=== PATIENT | female | born 1950 | race Caucasian/White ===

== ENCOUNTER → 2017-02-20 | Outpatient (CLI) | payer MEDICARE ==
[~2017-02-20] MED LIST: CELE100C PO; CYCL10TA2 PO; GABA-586 PO; MODA200T31 PO; NAPR500T3 PO; PANT40GR PO; PRED10TA16 PO; PRED2.5T PO; RISE35TA3 PO; SULF500T7 PO; TRAM50TA PO
--- NOTE | 2017-02-20 11:28 | RAD ---
Left lower extremity venous ultrasound, 02/20/2017 : History: Left leg swelling Duplex evaluation including grayscale, color flow and spectral Doppler analysis was performed. The femoral and popliteal veins show no filling defects to suggest DVT. The visualized calf veins are unremarkable. IMPRESSION: There is no sonographic evidence of deep vein thrombosis in the left lower extremity
== END | disposition home or self-care (01) ==
LOC: US 10:47
PROVIDERS: ATTEND Internal Medicine
DX: M79.89 Other specified soft tissue disorders (principal)
CPT/HCPCS: 93971

== ENCOUNTER → 2017-03-28 | Outpatient (CLI) | payer MEDICARE ==
[~2017-03-28] MED LIST changes: +GADOBUTROL 7.5 MMOL/7.5 ML VIAL IV ONE; -NAPR500T3 PO; +NAPR500T4 PO
--- NOTE | 2017-03-28 14:43 | KCIC ---
MRI of the Brain without and with Contrast 03/28/2017 Clinical History: History of meningioma post CyberKnife in 2012. Technique: Unenhanced T1-weighted sagittal and axial and FLAIR, T2-weighted, gradient echo and diffusion-weighted axial images of the brain were obtained. After the intravenous administration of 7 cc of Gadavist, enhanced T1-weighted axial, sagittal and coronal images of the brain were obtained. Findings: Comparison study is dated 03/14/2016. The patient is post right frontal craniotomy. There is generalized parenchymal atrophy. Patchy and a few small scattered areas of increased signal intensity are seen within the periventricular and subcortical white matter of both cerebral hemispheres on the FLAIR and T2-weighted images consistent with areas of minimal small vessel ischemic disease. These have not significantly changed. An enhancing extra-axial mass is seen near the right anterior aspect of the foramen magnum consistent with the patient's history of meningioma. It measures 1.2 cm in greatest diameter. It is unchanged from the previous examination. No acute parenchymal abnormality is seen. No extra-axial fluid collection is noted. There is no MRI evidence of acute ischemia/infarction. Mild mucosal thickening is seen involving scattered ethmoid air cells bilaterally. There are small bilateral mastoid effusions, left greater than right. Normal flow voids are seen within the major vascular structures surrounding the brain parenchyma. IMPRESSION: Stable MRI appearance of the 1.2 cm meningioma near the region of the right anterior foramen magnum. No acute parenchymal abnormality is seen. Electronically signed by: Nghia Torre MD (03/28/2017 2:40 PM) [id number]
== END | disposition home or self-care (01) ==
LOC: KCIC MRI 10:07
PROVIDERS: ATTEND Neurological Surgery
DX: Z86.011 Personal history of benign neoplasm of the brain (principal)
CPT/HCPCS: 70553; 82565; A9585

== ENCOUNTER → 2017-11-20 | Day surgery (SDC) | payer MEDICARE ==
[~2017-11-20] MED LIST changes: -CELE100C PO; -CYCL10TA2 PO; -GABA-586 PO; -GADOBUTROL 7.5 MMOL/7.5 ML VIAL IV ONE; +LIDOCAINE 1%/EPI 1:100,000 20 ML VIAL. INJ; -MODA200T31 PO; -NAPR500T4 PO; -PANT40GR PO; -PRED10TA16 PO; -PRED2.5T PO; -RISE35TA3 PO; -SULF500T7 PO; -TRAM50TA PO
[2017-11-20] MEDS: LIDOCAINE 1%/EPI 1:100,000 20 ML VIAL. INJ (12:50)
== END | disposition home or self-care (01) ==
LOC: SURG 11:51
DX: D17.22 Benign lipomatous neoplasm of skin and subcutaneous tissue of left arm (principal); Z88.0 Allergy status to penicillin; Z88.2 Allergy status to sulfonamides; Z88.1 Allergy status to other antibiotic agents; G47.30 Sleep apnea, unspecified; M19.90 Unspecified osteoarthritis, unspecified site; F17.210 Nicotine dependence, cigarettes, uncomplicated
CPT/HCPCS: 25071; 88304; J3490

== ENCOUNTER 2018-07-10 06:41 | Emergency (ER) | payer MEDICARE ==
[~2018-07-10] VITALS: Ht 157.5 cm; Wt 57.2 kg
[~2018-07-10 06:41] MED LIST changes: +CELE100C PO; +CYCL10TA2 PO; +GABA300C18 PO; -LIDOCAINE 1%/EPI 1:100,000 20 ML VIAL. INJ; +MODA200T31 PO; +NAPR-514 PO; +PANT40GR PO; +PRED10TA16 PO; +PRED2.5T PO; +RISE35TA3 PO; +SULF500T7 PO; +TRAM50TA PO
[2018-07-10] MEDS ORDERED: ONDANSETRON PF 4 MG/2 ML VIAL. IV ONE (07:00)
[2018-07-10] MEDS ORDERED: fentaNYL PF VIAL 100 MCG/2 ML VIAL IV ONE ×2 (07:00→07:45)
--- NOTE | 2018-07-10 08:03 | RAD ---
Two-view right humerus 07/10/2018 CLINICAL INDICATION: Fall with right arm pain. COMPARISON: None. FINDINGS: No acute fracture or traumatic malalignment of the humeral diaphysis. The visualized soft tissues are unremarkable. Mild right acromioclavicular osteoarthritis with joint space narrowing and subchondral cystic change. IMPRESSION: No acute osseous abnormality. Electronically signed by: Patricio Steiner MD (07/10/2018 7:58 AM) [facility]
--- NOTE | 2018-07-10 08:04 | RAD ---
3 view right elbow 07/10/2018 CLINICAL INDICATION: Right arm pain after fall. COMPARISON: None. FINDINGS: No acute fracture or traumatic malalignment. Joint spaces are maintained. No significant elbow joint effusion. Normal bony alignment. IMPRESSION: No acute osseous abnormality. Electronically signed by: Patricio Steiner MD (07/10/2018 7:59 AM) [facility]
--- NOTE | 2018-07-10 08:06 | RAD ---
3 view right wrist 07/10/2018 CLINICAL INDICATION: Right wrist pain after fall. COMPARISON: None. FINDINGS: Transverse impacted and comminuted fracture of the distal radial metaphysis with intra-articular extension and mild dorsal angulation of the dominant distal fracture fragment. There is extension to the DRUJ. There is a nondisplaced ulnar styloid fracture. Normal carpal alignment. Mild 1st CMC osteoarthritis. Soft tissue swelling about the wrist. IMPRESSION: 1. Comminuted and angulated intra-articular fracture of the distal radius. 2. Nondisplaced ulnar styloid fracture. Electronically signed by: Patricio Steiner MD (07/10/2018 8:02 AM) [facility]
--- NOTE | 2018-07-10 08:07 | RAD ---
Two-view right forearm 07/10/2018 CLINICAL INDICATION: Right arm pain after fall. COMPARISON: Same day right wrist FINDINGS: Redemonstration of intra-articular fracture of the distal radius and nondisplaced ulnar styloid fracture. Otherwise, no evidence of acute fracture. IMPRESSION: Redemonstration of fractures of the distal radius and ulna. Electronically signed by: Patricio Steiner MD (07/10/2018 8:02 AM) [facility]
[2018-07-10 08:09] VITALS: BP 134/60
[2018-07-10] MEDS ORDERED: HYDR-2759 PO (08:09)
[2018-07-10] MEDS ORDERED: ALBUTEROL SULFATE 2.5 MG/3 ML NEBU. CONT NEB ONE (08:15)
--- NOTE | 2018-07-10 08:16 | PHYS DOC ---
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 Injury occurred just prior to ED arrival while walking her dogs. No head injury. No loss of consciousness. Patient localizes pain to right wrist, elbow and forearm. Pain with range of motion of wrist and forearm with subtle deformity of wrist. Abrasion of right knee. No other acute injuries or complaints.[] Review of Systems Review of Systems Review symptoms as per history of present illness. All other review symptoms are negative. All other systems were reviewed and found to be within normal limits, except as documented in this note. Current Medications Current Medications Current Medications Medications (Trade) Dose Ordered Sig/Mona Start Time Stop Time Status Last Admin Dose Admin Albuterol Sulfate (Ventolin Neb Soln) 10 mg 1X ONCE 07/10/18 08:15 07/10/18 08:16 Fentanyl Citrate (Fentanyl 2ml Vial) 50 mcg 1X ONCE 07/10/18 07:45 07/10/18 07:46 DC 07/10/18 07:51 50 MCG Ondansetron HCl (Zofran) 4 mg 1X ONCE 07/10/18 07:00 07/10/18 07:01 DC 07/10/18 07:27 4 MG Allergies Allergies Allergies Coded Allergies Type Severity Reaction Last Updated Verified Penicillins Allergy Intermediate 11/20/17 Yes Sulfa (Sulfonamide Antibiotics) Allergy Intermediate 11/20/17 Yes amoxicillin Allergy Intermediate 11/20/17 Yes Physical Exam Physical Exam Constitutional: Well developed, well nourished, no acute distress, non-toxic appearance. [] HENT: Normocephalic, atraumatic, bilateral external ears normal, oropharynx moist, no oral exudates, nose normal. [] Eyes: PERRLA, EOMI, conjunctiva normal, no discharge. [] Neck: Normal range of motion, no tenderness. [] ] Extremities: R Upper extremity, shoulder/humerus/elbow, no deformity, tenderness swelling or bruising, right wrist, subtle deformity swelling of distal wrist. Right knee, abrasion, no bony tenderness. Range of motion intact. [] Neurologic: Alert and oriented X 3, right upper extremity, neurovascularly intact. [] Psychologic: Affect normal, judgement normal, mood normal. [] Current Patient Data Vital Signs Vital Signs Date Time Temp Pulse Resp B/P (MAP) Pulse Ox O2 Delivery O2 Flow Rate FiO2 07/10/18 07:51 14 07/10/18 07:27 Room Air 07/10/18 06:41 98.0 61 154/67 (96) 98 98.0 EKG EKG [] Radiology/Procedures Radiology/Procedures [Right humerus/right elbow/right forearm/right wrist x-rays: Comminuted and angulated intra-articular fracture of the distal radius nondisplaced styloid fracture per radiology report.] Course & Med Decision Making Course & Med Decision Making Pertinent Labs and Imaging studies reviewed. (See chart for details) [Neurovascularly intact on recheck after splint placed. Orthopedic referral provided..] Dragon Disclaimer Dragon Disclaimer This electronic medical record was generated, in whole or in part, using a voice recognition dictation system. Departure Departure Impression: Primary Impression: Wrist fracture, right Additional Impression: Contusion of knee, right Disposition: 01 HOME, SELF-CARE Condition: GOOD Referrals: ALYSON DASH MD Patient Instructions: Wrist Fracture, [id number] Additional Instructions: Please sling, take ibuprofen for pain and hydrocodone as needed for additional relief. Contact Dr. Dash on-call for orthopedic surgery and schedule follow-up appointment within the next week. Scripts Hydrocodone/Acetaminophen (Hydrocodone-Acetamin 5-325 mg) 1 Each Tablet 1 EACH PO Q6HRS, #15 TAB Prov: AJITH DELATORRE DO 07/10/18 Problem Qualifiers AJITH DELATORRE DO Jul 10, 2018 08:16
[2018-07-16] MEDS ORDERED: CHOL10003 PO (10:55)
[2018-07-16] MEDS ORDERED: TIZA4TAB2 PO (10:55)
[2018-07-16] MEDS ORDERED: PROM25TA10 PO (10:56)
[2018-07-16] MEDS ORDERED: HYDR-3165 PO (13:58)
[2019-01-08] MEDS ORDERED: ALEN35TA6 PO (15:43)
[2019-01-14] MEDS ORDERED: OXYC1TAB15 PO (13:09)
== END 2018-07-10 08:25 | disposition home or self-care (01) ==
LOC: ER 06:41
DX: S52.591A Other fractures of lower end of right radius, initial encounter for closed fracture (principal); S52.614A Nondisplaced fracture of right ulna styloid process, initial encounter for closed fracture; S80.01XA Contusion of right knee, initial encounter; M19.90 Unspecified osteoarthritis, unspecified site; Z88.0 Allergy status to penicillin; Z88.2 Allergy status to sulfonamides; Z88.1 Allergy status to other antibiotic agents; W18.30XA Fall on same level, unspecified, initial encounter; Y93.01 Activity, walking, marching and hiking; Y92.89 Other specified places as the place of occurrence of the external cause; Y99.8 Other external cause status
CPT/HCPCS: 29125; 73060; 73070; 73090; 73110; 96374; 96375; 99284; J2405; J3010; 99283-25

== ENCOUNTER → 2018-07-16 | Day surgery (SDC) | payer MEDICARE ==
[~2018-07-16] VITALS: Ht 157.5 cm; Wt 56.2 kg
[~2018-07-16] MED LIST changes: +ALEN35TA6 PO; +BUPIVACAINE MPF 0.5% 30 ML VIAL. ONE; +CHOL10003 PO; +CLINDAMYCIN 900MG PREMIX 50 ML IV ONE; +DEXAMETHASONE SOD PHOS 20 MG/5 ML VIAL. ONE; +GLYCOPYRROLATE 1 MG/5 ML VIAL. ONE; +HYDR-2759 PO; +HYDR-3165 PO; +HYDROcodone/APAP 7.5/325MG 1 TAB TABLET PO ONE; +HYDROmorphone 2 MG/ML VIAL IV PRN; +IV RINGERS,LACTATED 1000ML 1,000 ML IV SCH; +LIDOCAINE 1% PF 2 ML VIAL. ID PRN; +LIDOCAINE 2% PF 5 ML VIAL. ONE; +ONDANSETRON PF 4 MG/2 ML VIAL. IV PRN; +ONDANSETRON PF 4 MG/2 ML VIAL. ONE; +OXYC1TAB15 PO; +PROM25TA10 PO; +PROPOFOL 20 ML IV ONE; +TIZA4TAB2 PO; +fentaNYL PF VIAL 100 MCG/2 ML VIAL IV PRN; +fentaNYL PF VIAL 100 MCG/2 ML VIAL ONE
[2018-07-16 10:56] LABS: BASO % 1 % (0-3); EOS # 0.3 x10^3/uL (0.0-0.7); EOS % 12 % (0-3); HEMATOCRIT 34.8 % (36.0-47.0); HEMOGLOBIN 11.5 g/dL (12.0-15.5); LYMPH # 0.9 x10^3/uL (1.0-4.8); LYMPH % 29 % (24-48); MEAN CORPUSCULAR HEMOGLOBIN 33 pg (25-35); MEAN CORPUSCULAR HGB CONC 33 g/dL (31-37); MEAN CORPUSCULAR VOLUME 101 fL (79-100); MONO # 0.2 x10^3/uL (0.0-1.1); MONO % 6 % (0-9); NEUT # 1.6 x10^3uL (1.8-7.7); NEUT % 52 % (31-73); PLATELET COUNT 183 x10^3/uL (140-400); RED BLOOD COUNT 3.45 x10^6/uL (3.50-5.40); RED CELL DISTRIBUTION WIDTH 13.2 % (11.5-14.5)
--- NOTE | 2018-07-16 11:03 | EKG ---
[facility] [address] [place] [address] Test Date: 2018-07-16 Test Time: 11:00:44 Pat Name: SILAS GALAVIZ Department: Room: Gender: F Analyst Sales: GRECIA : 1950 Requested By: KOKO BENOIT Order Number: [id number] Reading MD: Orlando Proctor MD Measurements Intervals Kingsley Rate: 50 P: 50 OR: 170 QRS: -32 QRSD: 90 T: 46 QT: 460 QTc: 418 Interpretive Statements SINUS RHYTHM ABNORMAL LEFT AXIS DEVIATION NON-SPECIFIC ST/T CHANGES Electronically Signed On 07-16-2018 12:52:27 [employer] by Orlando Proctor MD
[2018-07-16 11:06] LABS: CALCIUM 9.3 mg/dL (8.5-10.1); CREATININE 0.7 mg/dL (0.6-1.0); POTASSIUM 4.4 mmol/L (3.5-5.1)
[2018-07-16] MEDS: fentaNYL PF VIAL 100 MCG/2 ML VIAL IV PRN ×2 (13:55→14:06)
--- NOTE | 2018-07-16 13:56 | DISCH ---
DISCHARGE INSTRUCTIONS Condition on Discharge Condition on Discharge: Stable Activity After Discharge Activity Instructions for Disc: Other, see below (gentle grasping and extending fingers as well as fine motor use permitted to the right hand no heart grasping or lifting) Diet after Discharge Diet after Discharge: Regular Wound Incision Care Wound/Incision Care: Ice to area for comfort, Keep wound elevated, Do not change dressing (keep dressing clean and dry until follow-up may cover in shower ) Contacting the DR. after DC Call your doctor for: Concerns you may have Follow-Up Follow up with: Cali 7-10 days KOKO BENOIT MD Jul 16, 2018 13:56
[2018-07-16] MEDS: PROCHLORPERAZINE 10 MG/2 ML VIAL. IV PRN ×2 (13:59→14:10)
[2018-07-16] MEDS: MORPHINE SULFATE 4 MG/ML VIAL. IV PRN ×2 (14:00→14:26)
--- NOTE | 2018-07-16 14:04 | PDOC4 ---
Operative Note Operative Note Date of surgery: 07/16/2018 Preoperative diagnosis: Displaced intra-articular right distal radius fracture Postoperative diagnosis: Same Operative procedure: Operative reduction internal fixation 2 part intra- articular right distal radius fracture Surgeon: Cali Anesthesia: GenMarcella Tourniquet time of proximally 40 minutes Estimated blood loss: 10 mL Complications: None Operative indications: Please see my preoperative history and physical for detailed operative indications and note that I had gone over the rationale for operative treatment with the patient including the downside of nonoperative treatment in terms of poor alignment at the fracture and joint space. We had talked about operative treatment to minimize any displacement at the joint space and restore the anatomy as well as possible to allow it to heal and minimize deformity and stiffness. All her questions were answered including informing her the possibility of infection nonhealing nerve or blood vessel damage medical or other anesthetic consultations and stiffness and some discomfort even under the best of circumstances with good healing. He wishes to proceed with operative evaluation and treatment Operative text: Patient was identified procedure verified patient placed in the supine position on the operating table. After adequate amounts of general anesthesia were administered the right upper extremity was prepped and draped in standard sterile fashion with a upper arm tourniquet. After timeout was performed patient procedure identified and verified the right upper extremity was exsanguinated by Esmarch bandage tourniquet inflated to 250 mmHg and a volar Kasi approach was carried out to the right distal radius subperiosteal dissection was carried out reduction was carried out open under fluoroscopic guidance and a standard size long length Swathi distal radial locking plate was selected and properly placed a initial screw was placed in the nonlocking hole to position the plate and distal locking holes were placed under fluoroscopic guidance for each ensuring proper placement and fracture reduction as well as hardware length and placement extra-articular. Locking screws were then placed in the proximal row and excellent fixation was noted along with near anatomic reduction both at the joint space and restoring nearly anatomic volar tilt. Nonlocking shaft screws were then placed into additional holes excellent fixation and hardware placement was noted throughout multiple fluoroscopic views. Thorough irrigation carried out normal saline solution closure accomplished with buried Vicryl suture subcuticular Monocryl Steri-Strips and Mastisol followed by a well-padded volar Ortho-Glass splint. Fingers were noted be warm and pink following deflation of tourniquet after a total tourniquet time approximately 40 minutes patient was returned to recovery room in stable condition having tolerated procedure well KOKO BENOIT MD Jul 16, 2018 14:04
[2018-07-16 15:30] VITALS: BP 116/53
== END | disposition home or self-care (01) ==
LOC: SURG 10:01
PROVIDERS: ATTEND Orthopaedic Surgery
DX: S52.571A Other intraarticular fracture of lower end of right radius, initial encounter for closed fracture (principal); Z88.2 Allergy status to sulfonamides; Z88.5 Allergy status to narcotic agent; Z88.1 Allergy status to other antibiotic agents; G47.30 Sleep apnea, unspecified; I65.8 Occlusion and stenosis of other precerebral arteries; M13.80 Other specified arthritis, unspecified site; Z90.49 Acquired absence of other specified parts of digestive tract; Z98.890 Other specified postprocedural states; Z79.899 Other long term (current) drug therapy; W18.39XA Other fall on same level, initial encounter; Y93.89 Activity, other specified; Y92.89 Other specified places as the place of occurrence of the external cause; Y99.8 Other external cause status
CPT/HCPCS: 25608; 36415; 76000; 80048; 85025; 93005; A7015; C1713; J0780; J1100; J2001; J2270; J2405; J2704; J3010; J3490

== ENCOUNTER → 2018-10-18 | Outpatient (CLI) | payer MEDICARE ==
[2018-07-16 15:30] VITALS: BP 116/53
[~2018-10-18] MED LIST changes: -ALEN35TA6 PO; -BUPIVACAINE MPF 0.5% 30 ML VIAL. ONE; -CLINDAMYCIN 900MG PREMIX 50 ML IV ONE; -DEXAMETHASONE SOD PHOS 20 MG/5 ML VIAL. ONE; -GLYCOPYRROLATE 1 MG/5 ML VIAL. ONE; -HYDROcodone/APAP 7.5/325MG 1 TAB TABLET PO ONE; -HYDROmorphone 2 MG/ML VIAL IV PRN; -IV RINGERS,LACTATED 1000ML 1,000 ML IV SCH; -LIDOCAINE 1% PF 2 ML VIAL. ID PRN; -LIDOCAINE 2% PF 5 ML VIAL. ONE; -ONDANSETRON PF 4 MG/2 ML VIAL. IV PRN; -ONDANSETRON PF 4 MG/2 ML VIAL. ONE; -OXYC1TAB15 PO; -PROPOFOL 20 ML IV ONE; +TIZA4TAB PO; -TIZA4TAB2 PO; -fentaNYL PF VIAL 100 MCG/2 ML VIAL IV PRN; -fentaNYL PF VIAL 100 MCG/2 ML VIAL ONE
--- NOTE | 2018-10-18 14:57 | RAD ---
Thyroid ultrasound, 10/18/2018: HISTORY: Left thyroid nodule The right lobe of the gland measures 5.7 x 2.3 x 1.4 cm while the left lobe of the gland measures 5.3 x 2.2 x 2.0 cm. The thyroid echo pattern is heterogeneous. There is a 3 x 5 x 7 mm smooth hypoechoic nodule in the upper pole the right lobe of the gland. No internal calcifications or highly suspicious features are seen. There is a 6 mm nodule with rim-like calcification in the isthmus. There is a nodule in the lower pole the left lobe of the gland which is predominantly isoechoic and difficult to clearly define. It is solid and measures approximate 2.5 x 1.8 x 1.7 cm. It is wider than tall. No internal calcifications are seen. IMPRESSION: Multinodular thyroid gland with a dominant isoechoic nodule in the left lobe as described above. Ultrasound-guided biopsy of the dominant left thyroid nodule may be considered for further evaluation, versus sonographic surveillance. A radionuclide thyroid scan may be useful in decision making. Electronically signed by: Evaristo Villela MD (10/18/2018 2:54 PM) [facility]
== END | disposition home or self-care (01) ==
LOC: US 10:34
PROVIDERS: ATTEND Internal Medicine
DX: E04.2 Nontoxic multinodular goiter (principal)
CPT/HCPCS: 76536

== ENCOUNTER → 2018-11-06 | Outpatient (CLI) | payer MEDICARE ==
[2018-07-16 15:30] VITALS: BP 116/53
--- NOTE | 2018-11-06 14:30 | RAD ---
Ultrasound-guided left thyroid biopsy, 11/06/2018: History: Suspicious nodule Previous studies demonstrated a dominant solid nodule in the left thyroid lobe. Today's imaging also demonstrated some internal calcifications. Under local anesthesia, aseptic conditions and sonographic guidance 4 separate 25-gauge aspirates were obtained from this nodule via an anteromedial approach. The materials were sent to pathology for evaluation. Hemostasis was then obtained. The patient tolerated the procedure well and left the department in good condition. The pathology results are pending.
--- NOTE | 2018-11-11 13:07 | PATHOLOGY ---
Note [facility] Accession Number: [id number] TESTS RESULT FLAG UNITS REF RANGE LAB Clinician Provided Cytology Information No. of containers..01 Other (Miscellaneous) Source: LT THYROID DIAGNOSIS: LT THYROID INCONCLUSIVE. BETHESDA CATEGORY III. ATYPIA OF UNDETERMINED SIGNIFICANCE. THIS INTERPRETATION INCLUDES EVALUATION OF A CELL BLOCK. COMMENT, CELLULAR ASPIRATE WITH THYROID FOLLICULAR CELLS WITH BOTH MICRO AND MACRO FOLLICULAR ARCHITECTURE WITH HURTHLE CELL CHANGES AND WITH ATYPIA. THE DIFFERENTIAL INCLUDES A CELLULAR ADENOMATOID NODULE. HOWEVER A FOLLICULAR NEOPLASM CANNOT BE EXCLUDED SUGGEST RADIOLOGICAL AND CLINICAL CORRELATION. Pathologist ICD10: 02 R89.6 Signed out by: Edilberto Villanueva MD, Pathologist NPI- [id number] Performed by: Hugo Fontenot, Breaker Layer ([facility]) Gross description: 01 30ML, COLORLESS, CLOUDY /LCS FLAG LEGEND: L-Low Normal,H-High Normal,LL-Alert Low,HH-Alert High <-Panic Low,>-Panic High,A-Abnormal,AA-Critical Abnormal Performed at: [facility] [address] [place] [address] [address] [place] [address] Best Guillen MD, [address] [facility] [address] [place] [address] Erick Souza MD, Specimen Comment: A courtesy copy of this report has been sent to Specimen Comment: [phone], . Specimen Comment: Report sent to / DR STEPHENS Specimen Comment: A duplicate report has been generated due to demographic updates. Performed at: [address], [place] [id number] MD Best Guillen MD Phone: [phone]
== END ==
LOC: US 12:47
PROVIDERS: ATTEND Internal Medicine
DX: E04.1 Nontoxic single thyroid nodule (principal)
CPT/HCPCS: 10005; 60300; 76942; 88173; 88305

== ENCOUNTER 2019-01-13 12:58 | Observation (INO) | payer MEDICARE ==
[2019-01-13] VITALS (9 sets, daily range): BP systolic 92–143; BP diastolic 42–66
[~2019-01-13] VITALS: Ht 157.5 cm; Wt 59.9 kg
[~2019-01-13 12:58] MED LIST changes: +ALEN35TA6 PO; +HYDROmorphone 2 MG/ML VIAL IV PRN; +IV RINGERS,LACTATED 1000ML 1,000 ML IV SCH; +LIDOCAINE 1% PF 2 ML VIAL. ID PRN; +MORPHINE SULFATE 2 MG/ML VIAL. IV PRN; +ONDANSETRON PF 4 MG/2 ML VIAL. IV PRN; +PROCHLORPERAZINE 10 MG/2 ML VIAL. IV PRN; -TIZA4TAB PO; +TIZA4TAB2 PO; +fentaNYL PF VIAL 100 MCG/2 ML VIAL IV PRN
[2019-01-13] MEDS ORDERED: LIDOCAINE 1%/EPI 1:100,000 20 ML VIAL. ONE (13:03)
[2019-01-13] MEDS ORDERED: BACITRACIN 50,000 UNIT VIAL. IRR ONE (13:03)
[2019-01-13] MEDS ORDERED: EPINEPHrine VIAL 30 MG/30 ML VIAL ONE (13:03)
[2019-01-13] MEDS ORDERED: ONDANSETRON PF 4 MG/2 ML VIAL. ONE (14:07)
[2019-01-13] MEDS ORDERED: DEXAMETHASONE SOD PHOS 4 MG/ML VIAL ONE (14:07)
[2019-01-13] MEDS ORDERED: PROPOFOL 20 ML IV ONE (14:07)
[2019-01-13] MEDS ORDERED: LIDOCAINE 2% PF 5 ML VIAL. ONE (14:07)
[2019-01-13] MEDS ORDERED: PROPOFOL 50 ML IV ONE (14:07)
[2019-01-13] MEDS ORDERED: ROCURONIUM 50 MG/5 ML VIAL. ONE (14:07)
[2019-01-13] MEDS ORDERED: CLINDAMYCIN 900MG PREMIX 50 ML IV ONE (14:08)
[2019-01-13] MEDS ORDERED: REMIFENTANIL 1 MG VIAL. IV ONE (14:13)
[2019-01-13] MEDS ORDERED: 0.9 % SODIUM CHLORIDE 20 ML VIAL. IJ ONE (14:13)
[2019-01-13] MEDS ORDERED: GLYCOPYRROLATE 1 MG/5 ML VIAL. ONE (14:48)
[2019-01-13] MEDS ORDERED: PHENYLEPHRINE in 0.9% NACL PF 1 MG/10 ML SYRINGE. IV ONE (15:01)
[2019-01-13] MEDS ORDERED: MUPIROCIN 2 % NASAL OINTMENT 22GM TUBE. ONE (15:32)
[2019-01-13] MEDS ORDERED: NEOSTIGMINE METHYLSULFATE 5 MG/5 ML SYRINGE. ONE (16:28)
[2019-01-13] MEDS ORDERED: oxyCODONE/APAP 5/325 1 TAB TABLET PO PRN (16:45)
[2019-01-13] MEDS ORDERED: diphenhydrAMINE 50 MG/ML VIAL IV PRN (16:45)
[2019-01-13] MEDS ORDERED: MAGNESIUM HYDROXIDE 2,400 MG/30 ML ORAL.SUSP. PO PRN (16:45)
[2019-01-13] MEDS ORDERED: 0.9 % SODIUM CHLORIDE 10 ML DISP.SYRIN. IV PRN (16:45)
[2019-01-13] MEDS ORDERED: METOCLOPRAMIDE HCL 10 MG/2 ML VIAL. IV PRN (16:45)
[2019-01-13] MEDS ORDERED: diphenhydrAMINE HCL 25 MG CAPSULE PO PRN (16:45)
[2019-01-13] MEDS ORDERED: NALOXONE 0.4 MG/ML VIAL. IV PRN (16:45)
[2019-01-13] MEDS ORDERED: ONDANSETRON PF 4 MG/2 ML VIAL. IV PRN (16:45)
[2019-01-13] MEDS ORDERED: DESFLURANE > 120 MINUTES IH ONE (16:46)
[2019-01-13] MEDS ORDERED: PROCHLORPERAZINE 10 MG/2 ML VIAL. ONE (16:51)
[2019-01-13] MEDS: fentaNYL PF VIAL 100 MCG/2 ML VIAL IV PRN ×3 (16:54→17:38)
--- NOTE | 2019-01-13 16:59 | PDOC4 ---
IMMEDIATE POST OP NOTE Date: Jan 13, 2019 Pre-Op Diagnosis left thyroid nodule Post-Op Diagnosis same as above Procedure Performed left thyroid lobectomy Surgeon Dr. Ale Osullivan Windows Mobile Developer Dr. Gena Montana, co-surgeon Anesthesiologist Dr. 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 2cm left thyroid nodule within inferior left thyroid gland 2. Superior and inferior parathyroid glands visualized and healthy at end of the case 3. Left recurrent laryngeal nerve intact at end of the case Complications none Operative Note Dictation #[id number] ALE OSULLIVAN MD Jan 13, 2019 16:59
[2019-01-13] MEDS ORDERED: fentaNYL PF VIAL 100 MCG/2 ML VIAL ONE (17:18)
--- NOTE | 2019-01-13 17:34 | OP ---
DATE OF SURGERY: 01/13/2019 PREOPERATIVE DIAGNOSIS: Left thyroid nodule. POSTOPERATIVE DIAGNOSIS: Left thyroid nodule. PROCEDURE PERFORMED: Left thyroid lobectomy. SURGEON: Ale Arredondo MD CO-SURGEON: Gena Montana MD ANESTHESIOLOGIST: Kunal Guallpa MD ANESTHESIA: General endotracheal anesthesia. INDICATIONS FOR SURGERY: The patient is a 68-year-old female with newly diagnosed left thyroid lobe nodule that was 2 cm in size. 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 The decision was therefore made for the patient to undergo a left thyroid lobectomy after informed consent was obtained. ESTIMATED BLOOD LOSS: 10 mL. SPECIMEN: Left thyroid lobe was sent for intraoperative frozen pathology, which showed follicular neoplasm. INTRAOPERATIVE FINDINGS: 1. A 2 cm nodule within the inferior pole of the left thyroid gland. This was soft on palpation. 2. The superior and inferior parathyroid glands were visualized and dissected away from the thyroid gland during the case and were healthy at the end of the case. 3. The recurrent laryngeal nerve was intact at the end of the case. DESCRIPTION OF THE PROCEDURE: The patient was brought back to the operating room per Anesthesia and intubated in standard fashion with a nerve integrity monitor endotracheal tube. Shoulder roll was then placed on the patient's shoulders and her head was draped and a 5 cm incision was planned approximately 2 fingerbreadths above the sternal notch within the neck crease. This was injected in subcutaneous fashion with 1% lidocaine with 1:100,000 epinephrine. The nerve integrity monitor was then set up and verified for accuracy. This was used throughout the case for patient safety. The patient was then prepped and draped in standard fashion. Dr. Gena Montana served as my cosurgeon throughout the case to help in identifying important landmarks and assisting with the dissection. A 15 blade was used to cut through the skin and subcutaneous tissue and platysmal layers. I then elevated subplatysmal flaps superiorly to the thyroid notch, inferiorly to the sternal notch and laterally to the sternocleidomastoid muscles bilaterally. An Gera retractor was then placed to protect the skin edges and for retraction. The strap musculature was at the midline. I then identified the thyroid isthmus. I carefully dissected the strap musculature off the anterior surface of the thyroid gland. Using LigaSure cautery, I then dissected around the superior thyroid pole, dissecting through the superior vascular bundle using LigaSure cautery. I again identified the middle thyroid vein and also dissected through this using LigaSure cautery. We reflected the gland medially. In doing so, we took care to carefully dissect the deep surface of the thyroid gland. In doing so, identified both the superior and inferior parathyroid glands and these were carefully dissected away using bipolar cautery away from the thyroid gland. We also identified the recurrent laryngeal nerve. We traced this until I entered into the larynx at the cricothyroid notch. Using bipolar electrocautery, we carefully dissected the thyroid gland away from the recurrent laryngeal nerve. We then dissected through Frias's ligament medial to where the nerve entered into the larynx using bipolar electrocautery and sharp dissection. Once we were safely away from the recurrent laryngeal nerve. We continue dissect through the thyroid gland through the paratracheal tissue using bipolar cautery as well as Bovie electrocautery. Once we carefully around the thyroid gland and dissecting underneath the thyroid isthmus, we dissected through the thyroid isthmus using LigaSure cautery. The specimen was inspected on the back table. There was a soft 2 cm approximately nodule within the inferior pole of the thyroid gland. There was no evidence of attached parathyroid tissue. This was sent for intraoperative frozen section, which showed a follicular neoplasm of undetermined significance. Therefore, it was decided not to perform a total thyroidectomy at this time. The surgical bed was thoroughly irrigated and adequate hemostasis was confirmed. The recurrent laryngeal nerve was again identified and it was intact along its entire length until I entered into the larynx at the cricothyroid notch. The superior and inferior parathyroid glands were again identified and they were healthy in appearance. Ju powder was then placed within the surgical bed. A 10-Hebrew fully fluted drain was also placed within the surgical bed. This was brought out through the midline of the strap musculature. The strap musculature was closed with a running locking suture of 3-0 Vicryl. The Gera retractor was again removed. I ensured adequate hemostasis in the subplatysmal layer. The drain was brought out through a stab incision in the left lateral aspect of our incision. Drain was sutured to the skin using a 4-0 nylon suture. I closed the platysmal and deep dermal layers with buried interrupted sutures of 4-0 Vicryl and the skin layer was closed with a horizontal mattress suture of 5-0 Prolene. Mupirocin ointment was placed along the incision. The patient was turned back over to anesthesia and extubated without complication. Our sponge, needle, instrument counts were correct at the end of the case. COMPLICATIONS: None. DISPOSITION: Stable and transferred to recovery room. ALE ARREDONDO MD DR: JON/margaret JOB#: [id number] / [id number]
[2019-01-13] MEDS: IV RINGERS,LACTATED 1000ML 1,000 ML IV SCH (19:08)
[2019-01-13] MEDS: MUPIROCIN 2 % TOPICAL CREAM 30GM TUBE. TP SCH (21:00)
[2019-01-13] MEDS: sulfaSALAzine 500 MG TABLET PO SCH (21:09)
[2019-01-13] MEDS: DOCUSATE SODIUM 100 MG CAPSULE. PO SCH (21:09)
[2019-01-13] MEDS: CLINDAMYCIN 600MG PREMIX 50 ML IV SCH (21:10)
[2019-01-13] MEDS: ACETAMINOPHEN 325 MG TABLET. PO SCH (22:00)
[2019-01-14] MEDS: oxyCODONE/APAP 5/325 1 TAB TABLET PO PRN ×2 (00:12→12:57)
[2019-01-14] MEDS: IV RINGERS,LACTATED 1000ML 1,000 ML IV SCH ×2 (02:51→12:43)
[2019-01-14 03:00] VITALS: BP 108/46
[2019-01-14] MEDS: ACETAMINOPHEN 325 MG TABLET. PO SCH ×2 (06:00→12:55)
[2019-01-14] MEDS ORDERED: CLINDAMYCIN 900MG PREMIX 50 ML IV PRN (06:00)
[2019-01-14] MEDS: CLINDAMYCIN 600MG PREMIX 50 ML IV SCH ×2 (06:00→12:55)
[2019-01-14 07:00] VITALS: BP 104/39
[2019-01-14] MEDS ORDERED: CHOLECALCIFEROL (VITAMIN D3) 1,000 UNIT TABLET PO SCH (09:00)
[2019-01-14] MEDS: DOCUSATE SODIUM 100 MG CAPSULE. PO SCH (09:00)
[2019-01-14] MEDS: MUPIROCIN 2 % TOPICAL CREAM 30GM TUBE. TP SCH ×2 (09:00→12:58)
[2019-01-14] MEDS: sulfaSALAzine 500 MG TABLET PO SCH (09:00)
[2019-01-14] MEDS ORDERED: tiZANidine 4 MG TABLET. PO SCH (09:00)
--- NOTE | 2019-01-14 10:50 | NUR ---
[facility] downtime today, see paper chart for meds and assessment
[2019-01-14 11:00] VITALS: BP 95/43
--- NOTE | 2019-01-14 12:17 | NUR ---
SS following for discharge planning. SS reviewed pt chart. Pt is from home with spouse and is currently on room air. No discharge needs noted at this time. SS will continue to follow for discharge planning.
--- NOTE | 2019-01-14 13:03 | NUR ---
dr kailey calle pulled MAN drain in pt neck at 1230 at bedside. will continue to monitor.
[2019-01-14] MEDS ORDERED: OXYC1TAB15 PO (13:09)
--- NOTE | 2019-01-14 14:16 | NUR ---
pt is discharged home with self care at 1410 via ambulation via this RN. pt is in stable condition. pt has all belongings with her. pt received discharge instructions and stated she had no further questions for me.
--- NOTE | 2019-01-15 18:17 | PATHOLOGY ---
[facility] Accession Number: [id number] . 01 Material submitted: . thyroid gland - LEFT THYROID GLAND. Modifiers: left . 02 Frozen section diagnosis: . INTRAOPERATIVE CONSULTATION WITH FROZEN SECTION: (Belem Souza M.D.) . FAS1. Thyroid lobe, left thyroid lobectomy: - Well demarcated 2.0 cm solid thyroid nodule - definitive diagnosis pending examination of permanent sections. . The results are reported to Dr. Osullivan in the operating room. . FROZEN SECTION GROSS DESCRIPTION: The specimen is received fresh for intraoperative consultation and is designated "left thyroid gland". This consists of a lobe of reddish-purple thyroid tissue which weighs 16 grams and measures up to 4.8 x 4.0 x 1.9 cm in greatest dimension. The anterior capsular surface is smooth and intact. The posterior capsular surface is focally disrupted partially exposing a martinez nodule and there is focal brown roughening. The margins are inked. The specimen is serially sectioned. Within the lateral aspect of the inferior pole, there is a fairly well demarcated, martinez, rubbery nodule measuring up to approximately 2.0 cm in greatest dimension. There are several additional smaller martinez nodules within the remainder of the lobe which are focally calcified. The remaining thyroid tissue is red and meaty. A business services representative section from the nodule in the lateral inferior pole is submitted for frozen section as FSA1. The tissue remaining from frozen section is submitted for permanent sections as A1. (JPM/db; 01/13/2019) . Frozen section performed at [facility], [address] [place] [address], [place] [address]. TORY/JAZZ . 02 Diagnosis: Thyroid lobe, left thyroid lobectomy: - Adenomatous nodules, multiple, the largest measuring 2.0 cm, showing focal Hurthle cell features and focal sclerosis and calcification. - Chronic inflammation, mild, patchy. - No parathyroid glands identified. LBQ/01/15/2019 . 02 Comment: There is no evidence of malignancy. (JPM/db; 01/15/2019) . 02 Electronically signed: . Erick Souza MD, Pathologist NPI- [id number] . 01 Gross description: . SEE FROZEN SECTION GROSS DESCRIPTION. . The remainder of the thyroid gland is submitted as follows: . A2-A4: Remainder of dominant nodule A5-A6: Upper pole A7-A9: Middle thyroid A10-A11: Remainder of lower pole (JPM/db; 01/15/2019) /LBQ . 02 Pathologist provided ICD-10: E04.1, E06.5 . 02 CPT . 880471, [id number] Specimen Comment: A courtesy copy of this report has been sent to Specimen Comment: [phone]. Specimen Comment: Report sent to [facility]formed at: [facility] [address], [place] [id number] MD Best Guillen MD Phone: [phone] [facility]formed at: [facility] [address] [place], [place] [id number] MD Erick Souza MD Phone: [phone]
== END 2019-01-14 14:10 | disposition home or self-care (01) ==
LOC: SURG 12:58 → 4 NORTH 18:00
PROVIDERS: ADMIT Otolaryngology; ATTEND Otolaryngology
PROC: 0GTG0ZZ Resection of Left Thyroid Gland Lobe, Open Approach (ICD-10-PCS; principal; 2019-01-13 14:30)
DX: E04.1 Nontoxic single thyroid nodule (principal)
CPT/HCPCS: 60220; 88307; 88331; 96365; A7015; G0378; G0379; J0780; J1100; J2001; J2370; J2405; J2704; J2710; J3010; J3490; J7120; J0171

== ENCOUNTER 2019-01-15 06:14 | Emergency (ER) | payer MEDICARE ==
[~2019-01-15] VITALS: Ht 157.5 cm; Wt 56.7 kg
[~2019-01-15 06:14] MED LIST changes: -HYDROmorphone 2 MG/ML VIAL IV PRN; -IV RINGERS,LACTATED 1000ML 1,000 ML IV SCH; -LIDOCAINE 1% PF 2 ML VIAL. ID PRN; -MORPHINE SULFATE 2 MG/ML VIAL. IV PRN; -ONDANSETRON PF 4 MG/2 ML VIAL. IV PRN; +OXYC1TAB15 PO; -PROCHLORPERAZINE 10 MG/2 ML VIAL. IV PRN; -fentaNYL PF VIAL 100 MCG/2 ML VIAL IV PRN
[2019-01-15 09:24] LABS: BILIRUBIN,URINE NEGATIVE (NEG); CLARITY,URINE CLEAR; COLOR,URINE YELLOW; NITRITE,URINE NEGATIVE (NEG); PH,URINE 6.5; PROTEIN,URINE NEGATIVE (NEG-TRACE); UROBILINOGEN,URINE 0.2 mg/dL (0.2 mg/dL)
--- NOTE | 2019-01-15 09:32 | RAD ---
EXAM: Chest, single view. HISTORY: Fever. COMPARISON: None. FINDINGS: A frontal view of the chest obtained. There is no infiltrate, pleural effusion or pneumothorax. The heart is prominent in size, a component of which is due to portable technique. IMPRESSION: No acute pulmonary finding. Electronically signed by: Izzy Ma MD (01/15/2019 9:30 AM) [email or web address]
[2019-01-15 09:33] LABS: BASO # 0.1 x10^3/uL (0.0-0.2); BASO % 1 % (0-3); EOS # 0.4 x10^3/uL (0.0-0.7); EOS % 6 % (0-3); HEMATOCRIT 37.1 % (36.0-47.0); HEMOGLOBIN 12.7 g/dL (12.0-15.5); LYMPH % 17 % (24-48); MEAN CORPUSCULAR HEMOGLOBIN 34 pg (25-35); MEAN CORPUSCULAR HGB CONC 34 g/dL (31-37); MEAN CORPUSCULAR VOLUME 100 fL (79-100); MONO # 0.4 x10^3/uL (0.0-1.1); MONO % 6 % (0-9); NEUT # 4.2 x10^3/uL (1.8-7.7); NEUT % 70 % (31-73); PLATELET COUNT 140 x10^3/uL (140-400); RED BLOOD COUNT 3.72 x10^6/uL (3.50-5.40); RED CELL DISTRIBUTION WIDTH 13.4 % (11.5-14.5)
--- NOTE | 2019-01-15 09:34 | PHYS DOC ---
Past Medical History Past Medical History: Arthritis, Other Additional Past Medical Histor: Reynaud's, THYROID Past Surgical History: Appendectomy, Cholecystectomy, Other Additional Past Surgical Histo: Bilateral carpal tunnel, trigger finger right, meningioma Alcohol Use: None Drug Use: None Adult General Chief Complaint Chief Complaint: FEVER HPI HPI 68-year-old female presenting the emergency department today with a headache and fever after having a thyroid nodule removal on Sunday, January 13. The procedure was performed by Dr. Osullivan. POD 2. The patient's headache is moderate to severe throbbing nonradiating and associated with fever. She denies having a cough or dysuria. She is been ambulating without difficulty. She denies chest pain or shortness of breath. She denies focal neurologic deficits or vision changes. Review of systems is negative for chest pain shortness of breath. Positive for fever. Positive for headache. All other review of systems is negative. ED course: 68-year-old female presenting with a headache and fever postoperative day 2 from a partial thyroidectomy on the left by Dr. Osullivan. Initially she had a very low-grade temperature here in the emergency department. This came down without any intervention. Head CT ordered which was negative. Blood work and urinalysis negative. White blood cell count within normal limits. She has normal range of motion in neck for me without any signs of meningismus. I spoke with Dr. Osullivan and consulted with her about the case. We will discharge patient to follow-up with her PCP in [address] Osullivan will call her tomorrow or the next day and follow-up. Patient is referred to return if she develops neck stiffness or her fever goes above 101�F. Current Medications Current Medications Current Medications Medications (Trade) Dose Ordered Sig/Mona Start Time Stop Time Status Last Admin Dose Admin Sodium Chloride 1,000 ml @ 1,000 mls/hr 1X ONCE 01/15/19 09:45 01/15/19 10:44 01/15/19 10:00 1,000 MLS/HR Allergies Allergies Allergies Coded Allergies Type Severity Reaction Last Updated Verified Penicillins Allergy Intermediate CHILDHOOD 01/08/19 Yes Sulfa (Sulfonamide Antibiotics) Allergy Intermediate sick of stomach 01/08/19 Yes amoxicillin Allergy Intermediate unknown (long time ago) 01/08/19 Yes cephalexin Allergy Intermediate Nausea and Vomiting 01/08/19 Yes Physical Exam Physical Exam Constitutional: Well developed, well nourished, no acute distress, non-toxic appearance. [] HENT: Normocephalic, atraumatic, bilateral external ears normal, oropharynx moist, no oral exudates, nose normal. [] Neck: The patient demonstrates normal range of motion of the neck without meningismus. Negative Brudzinski's sign. Negative Kernig sign. Eyes: PERRLA, EOMI, conjunctiva normal, no discharge. [] Neck: Normal range of motion, no tenderness, supple, no stridor. [] Cardiovascular:Heart rate regular rhythm, no murmur [] Lungs & Thorax: Bilateral breath sounds clear to auscultation [] Abdomen: Bowel sounds normal, soft, no tenderness, no masses, no pulsatile masses. [] Skin: Warm, dry, no erythema, no rash. [] Back: No tenderness, no CVA tenderness. [] Extremities: No tenderness, no cyanosis, no clubbing, ROM intact, no edema. [] Neurologic: Alert and oriented X 3, normal motor function, normal sensory function, no focal deficits noted. [] Psychologic: Affect normal, judgement normal, mood normal. [] Current Patient Data Vital Signs Vital Signs Date Time Temp Pulse Resp B/P (MAP) Pulse Ox O2 Delivery O2 Flow Rate FiO2 01/15/19 10:31 98.4 98.4 01/15/19 07:55 66 20 127/52 (77) 97 Room Air Lab Values Laboratory Tests Test 01/15/19 08:10 01/15/19 09:00 Urine Collection Type Unknown Urine Color Yellow Urine Clarity Clear Urine pH 6.5 Urine Specific [place] 1.010 Urine Protein Negative mg/dL (NEG-TRACE) Urine Glucose (UA) Negative mg/dL (NEG) Urine Ketones (Stick) Negative mg/dL (NEG) Urine Blood Negative (NEG) Urine Nitrite Negative (NEG) Urine Bilirubin Negative (NEG) Urine Urobilinogen Dipstick 0.2 mg/dL (0.2 mg/dL) Urine Leukocyte Esterase Negative (NEG) Urine RBC Occ /HPF (0-2) Urine WBC Occ /HPF (0-4) Urine Squamous Epithelial Cells Few /LPF Urine Bacteria 0 /HPF (0-FEW) White Blood Count 6.0 x10^3/uL (4.0-11.0) Red Blood Count 3.72 x10^6/uL (3.50-5.40) Hemoglobin 12.7 g/dL (12.0-15.5) Hematocrit 37.1 % (36.0-47.0) Mean Corpuscular Volume 100 fL (79-100) Mean Corpuscular Hemoglobin 34 pg (25-35) Mean Corpuscular Hemoglobin Concent 34 g/dL (31-37) Red Cell Distribution Width 13.4 % (11.5-14.5) Platelet Count 140 x10^3/uL (140-400) Neutrophils (%) (Auto) 70 % (31-73) Lymphocytes (%) (Auto) 17 % (24-48) L Monocytes (%) (Auto) 6 % (0-9) Eosinophils (%) (Auto) 6 % (0-3) H Basophils (%) (Auto) 1 % (0-3) Neutrophils # (Auto) 4.2 x10^3/uL (1.8-7.7) Lymphocytes # (Auto) 1.0 x10^3/uL (1.0-4.8) Monocytes # (Auto) 0.4 x10^3/uL (0.0-1.1) Eosinophils # (Auto) 0.4 x10^3/uL (0.0-0.7) Basophils # (Auto) 0.1 x10^3/uL (0.0-0.2) Sodium Level 141 mmol/L (136-145) Potassium Level 3.7 mmol/L (3.5-5.1) Chloride Level 103 mmol/L (98-107) Carbon Dioxide Level 27 mmol/L (21-32) Anion Gap 11 (6-14) Blood Urea Nitrogen 10 mg/dL (7-20) Creatinine 0.7 mg/dL (0.6-1.0) Estimated GFR (Cockcroft-Gault) 83.0 BUN/Creatinine Ratio 14 (6-20) Glucose Level 94 mg/dL (70-99) Calcium Level 8.9 mg/dL (8.5-10.1) Total Bilirubin 0.7 mg/dL (0.2-1.0) Aspartate Amino Transferase (AST) 51 U/L (15-37) H Alanine Aminotransferase (ALT) 99 U/L (14-59) H Alkaline Phosphatase 105 U/L (46-116) Total Protein 6.9 g/dL (6.4-8.2) Albumin 3.8 g/dL (3.4-5.0) Albumin/Globulin Ratio 1.2 (1.0-1.7) Laboratory Tests 01/15/19 09:00 Laboratory Tests 01/15/19 09:00 EKG EKG [] Radiology/Procedures Radiology/Procedures [] Course & Med Decision Making Course & Med Decision Making Pertinent Labs and Imaging studies reviewed. (See chart for details) [] Dragon Disclaimer Dragon Disclaimer This electronic medical record was generated, in whole or in part, using a voice recognition dictation system. Departure Departure Impression: Primary Impression: Headache Disposition: HOME, SELF-CARE Condition: STABLE Referrals: KAMERON STEPHENS MD (PCP) Patient Instructions: General Headache Without Cause Additional Instructions: Thank you for allowing us to participate in your care today. Return to the emergency department you have any new or worsening symptoms, or if you are concerned for any reason. Return to emergency department if you have any new or concerning symptoms including but not limited to fever, chills, nausea, vomiting, intractable pain, any new rashes, chest pain, shortness of air, uncontrolled bleeding, difficulty breathing, and/or vision loss. Follow up with your primary care physician within 1-2 days. Call your Primary Doctor tomorrow and inform them of your visit today. If you do not have a primary care provider we are happy to provide you with a list of our primary care providers contact information. This condition should be evaluated by your primary care physician and any recommended consulting services for continued management within 2 days after discharge. If at any time, you are having difficulty getting into your primary care doctor or a specialist, return to the emergency department. ULISSES JESUS MD Jan 15, 2019 09:34
[2019-01-15] MEDS ORDERED: IV NORMAL SALINE 1000ML BAG 1,000 ML IV ONE (09:45)
--- NOTE | 2019-01-15 10:00 | RAD ---
PQRS Compliance Statement: One or more of the following individualized dose reduction techniques were utilized for this examination: 1. Automated exposure control 2. Adjustment of the mA and/or kV according to patient size 3. Use of iterative reconstruction technique CT HEAD WITHOUT CONTRAST History: Headache. History of meningioma post CyberKnife in 2012. Comparison: MR brain with and without contrast, March 28, 2017. Procedure: Axial images are obtained of the head from the skull base through the vertex without IV contrast. Findings: There is generalized cerebral atrophy. No mass-effect, midline shift, hemorrhage, extra-axial fluid collection, or obvious acute infarction is identified. Basilar cisterns are patent. Partially calcified extra-axial mass anterior right foramen magnum is unchanged in size from prior study and is compatible with meningioma. Bone windows demonstrate no acute calvarial abnormality. There is old right frontal craniotomy. Right frontal sinus is opacified. Maxillary sinuses essentially not imaged. Mastoid air cells are well aerated. IMPRESSION: No acute intracranial abnormality. Electronically signed by: Hugo Hdz MD (01/15/2019 9:58 AM) [id number]
[2019-01-15 10:05] LABS: BACTERIA,URINE 0 /HPF (0-FEW); RBC,URINE OCC /HPF (0-2); SQUAMOUS EPITHELIAL CELL,UR FEW /LPF; WBC,URINE OCC /HPF (0-4)
[2019-01-15 10:07] LABS: CALCIUM 8.9 mg/dL (8.5-10.1); CREATININE 0.7 mg/dL (0.6-1.0); POTASSIUM 3.7 mmol/L (3.5-5.1)
[2019-01-15 10:12] LABS: ALBUMIN 3.8 g/dL (3.4-5.0); ALBUMIN/GLOBULIN RATIO 1.2 (1.0-1.7); TOTAL BILIRUBIN 0.7 mg/dL (0.2-1.0); TOTAL PROTEIN 6.9 g/dL (6.4-8.2)
[2019-01-15] MEDS ORDERED: METOCLOPRAMIDE 10 MG TABLET. PO ONE (11:15)
[2019-01-15] MEDS ORDERED: diphenhydrAMINE 50 MG/ML VIAL IVP ONE (11:15)
[2019-01-15 11:58] VITALS: BP 145/61
== END 2019-01-15 12:35 | disposition home or self-care (01) ==
LOC: ER 06:14
DX: R51 Headache (principal); R50.9 Fever, unspecified; M19.90 Unspecified osteoarthritis, unspecified site; Z90.89 Acquired absence of other organs; Z90.49 Acquired absence of other specified parts of digestive tract; Z88.0 Allergy status to penicillin; Z88.2 Allergy status to sulfonamides; Z88.1 Allergy status to other antibiotic agents
CPT/HCPCS: 36415; 70450; 71045; 80053; 81001; 83605; 85025; 96374; 99285; J1200; J7030; J8597

== ENCOUNTER → 2019-04-01 | Outpatient (CLI) | payer MEDICARE ==
[~2019-04-01] MED LIST changes: +ALEN35TA11 PO; -ALEN35TA6 PO; +GADOTERATE 7.5 MMOL/15ML VIAL. IVP ONE
--- NOTE | 2019-04-01 14:25 | KCIC ---
BRAIN WO/W CONTRAST Date: 04/01/2019 11:00 AM Indication: Meningioma, status post gamma knife in 2013 Comparison: CT head 01/15/2019. MRI 03/28/2017. Technique: Multiplanar multisequence MRI of the brain was performed with and without intravenous contrast using the standard protocol. 10 cc Dotarem contrast was administered intravenously during the exam. Findings: No acute infarct. No acute hemorrhage. The ventricles are normal in size and configuration without hydrocephalus. Minimal scattered FLAIR hyperintensities in the subcortical and periventricular deep white matter, a nonspecific finding, appropriate for patient age. Stable small extra-axial enhancing mass along the right anterior foramen magnum measuring 1.2 cm in greatest dimension. The scalp and calvarium are normal. The pituitary and sella are normal. No Chiari malformation. The visualized upper cervical spine is normal. The visualized orbits and globes are normal. The visualized paranasal sinuses are clear. Left greater than right mastoid fluid. Normal flow voids within the vertebral, basilar, and internal carotid arteries indicating patency. IMPRESSION: Stable small meningioma along the anterior aspect of the foramen magnum. Electronically signed by: Elmer Álvarez MD (04/01/2019 2:22 PM) [facility]-[id number]
== END | disposition home or self-care (01) ==
LOC: KCIC MRI 10:41
PROVIDERS: ATTEND Neurological Surgery
DX: D32.0 Benign neoplasm of cerebral meninges (principal)
CPT/HCPCS: 70553; A9575

== ENCOUNTER → 2020-04-27 | Outpatient (CLI) | payer MEDICARE ==
[~2020-04-27] MED LIST changes: -ALEN35TA11 PO; +ALEN35TA45 PO; -GADOTERATE 7.5 MMOL/15ML VIAL. IVP ONE
--- NOTE | 2020-04-27 16:46 | KCIC ---
Thyroid ultrasound compared to similar exam dated October 182018 for multinodular thyroid, left thyroid nodule. TECHNIQUE AND FINDINGS: Real-time grayscale and color Doppler evaluation of the thyroid gland is performed. The left lobe of the thyroid is surgically absent. The right lobe measures 5.3 x 1.7 x 1.6 cm. The isthmus measures 4 mm in thickness. There is normal color flow throughout the thyroid remnant. In the mid substance of the right thyroid lobe there is a 4 mm ovoid spongiform benign nodule. At the inferior portion of the right lobe of thyroid there is a 7 mm x 6 mm x 6 mm homogeneously isoechoic nodule with smooth hypoechoic margins and no internal calcifications. This nodule is round. This corresponds to a score of TR 4. There is no suspicious adenopathy. IMPRESSION: 1. 7 mm TR 4 lesion in the inferior right thyroid lobe. 2. Postsurgical changes of the left thyroidectomy. Electronically signed by: Beltran Mercado MD (04/27/2020 4:43 PM) [id number]
== END ==
LOC: KCIC US 13:26
PROVIDERS: ATTEND Nurse Practitioner Adult Health
DX: E04.2 Nontoxic multinodular goiter (principal)
CPT/HCPCS: 76536

== ENCOUNTER → 2020-12-27 | Outpatient (CLI) | payer MEDICARE ==
--- NOTE | 2020-12-28 08:27 | RAD ---
EXAMINATION: US THYROID INDICATION: 70 years, Female, multinodular goiter. Follow-up examination. COMPARISON: 04/27/2020 Technique: Real-time grayscale and color Doppler imaging of the thyroid gland was performed per dee dee col. Findings: The right thyroid lobe measures: 5.0 x 2.3 x 1.7 cm. Left thyroidectomy. Estimated total number of nodules >/= 1cm: 0 Number of spongiform nodules >/= 2cm not described below (TR1): 0 Nodule #1: Maximum size: 0.8 x 0.5 x 0.6 cm, previously measured 0.7 x 0.6 x 0.6 cm. Location: Inferior pole right thyroid lobe Composition: Solid or almost completely solid (2) Echogenicity: Hyperechoic or isoechoic (1 point) Shape: [id number] (0 points) Margins: Ill-defined (0 points) Echogenic foci: None or large comet-tail artifacts (0 points) ACR TI-RADS total points: 3. ACR TI-RADS risk category: TR3 (3 points) - Mildly suspicious. FNA if ?2.5 cm. Follow if ?1.5 cm. Significant change in size (>/= 20% in two dimensions and minimal increase of 2 mm): No. Change in features: No. Change in ACR TI-RADS risk category: No. Nodule #2: Maximum size: 0.8 x 0.7 x 0.3 cm, previously measured 0.6 x 0.3 cm. Location: Upper pole right thyroid lobe Composition: Solid or almost completely solid (2) Echogenicity: Hyperechoic or isoechoic (1 point) Shape: [id number] (0 points) Margins: Ill-defined (0 points) Echogenic foci: None or large comet-tail artifacts (0 points) ACR TI-RADS total points: 3. ACR TI-RADS risk category: TR3 (3 points) - Mildly suspicious. FNA if ?2.5 cm. Follow if ?1.5 cm. Significant change in size (>/= 20% in two dimensions and minimal increase of 2 mm): No Change in features: No. Change in ACR TI-RADS risk category: No. IMPRESSION: 1. A few subcentimeter right thyroid nodules; none of them meet TI RADS criteria for fine-needle aspi ration or follow-up per ACR recommendation. 2. Left thyroidectomy. ACR TI-RADS recommendations TR5 (?7 points) - FNA if ? 1cm, follow-up if 0.5 - 0.9 cm every year for 5 years TR4 (4-6 points) - FNA if ? 1.5cm, follow-up if 1 - 1.4 cm in 1, 2, 3 and 5 years TR3 (3 points)- FNA if ? 2.5cm, follow-up if 1.5 - 2.4 cm in 1, 3 and 5 years TR2 (2 points) & TR1 (0 points) - No FNA or follow-up *Decision to biopsy should include other considerations such as patient demographics and relevant cli nical information. Reference: TIRADS 2017 J Am Saqib Radiol 2017;14:587-595 Electronically signed by: Grisel Mendoza MD (12/28/2020 8:24 AM) [id number]
== END ==
LOC: US 13:18
PROVIDERS: ATTEND Nurse Practitioner Adult Health
DX: E04.2 Nontoxic multinodular goiter (principal)
CPT/HCPCS: 76536

== ENCOUNTER → 2020-12-31 | Outpatient (CLI) | payer MEDICARE ==
--- NOTE | 2020-12-31 12:40 | KCIC ---
INDICATION: Screening for osteopenia/osteoporosis. Reason: OSTEOPENIA / Spl. Instructions: / Histor y: Postmenopausal screening COMPARISON: None. TECHNIQUE: Bone densitometry was performed through the lumbar spine and proximal femur. IMPRESSION: Lumbar Spine: BMD: 0.97 T-Score: -0.7 Range: Lower limits of normal Proximal Femur: BMD: 0.65 T-Score: -2.4 Range: On the border between osteopenia and osteoporosis. World Health Organization Criteria for Bone Density: T-Score: > -1.0: Normal Range < -1.0 to -2.5: Osteopenic Range < -2.5: Osteoporotic Range Electronically signed by: Elbert Osullivan MD (12/31/2020 12:37 PM) [id number]
--- NOTE | 2020-12-31 14:12 | KCIC ---
Bilateral digital screening mammograms with 3-D tomosynthesis: Reason for examination: Routine screening. No previous exams are available for comparison. New baseline. Bilateral mammograms in CC and oblique projections were obtained with 2-D imaging and 3-D tomosynthes is imaging on a Siemens Inspiration unit and reviewed on the workstation. Interpretation was made wit h the benefit of CAD. The skin and nipples show no abnormalities. No abnormal axillary lymph nodes are seen. The breast par enchyma is heterogeneously dense. (Breast density: Category C.) There are no dominant masses, suspici ous calcifications or architectural distortion. Vascular calcifications and a few benign parenchymal calcifications are seen. Impression: No evidence of malignancy. Recommend routine screening. Your patient's mammogram demonstrates that she has dense breast tissue (breast density category C or D), which could hide abnormalities, and if she has other risk factors for breast cancer that have bee n identified, she might benefit from supplemental screening tests that may be suggested by you as her ordering physician. Dense breast tissue, in and of itself, is a relatively common condition. Therefo re, this information is not provided to cause undue concern, but rather to raise your awareness and t o promote discussion with your patient regarding the presence of other risk factors, in addition to d ense breast tissue. Your patient's mammography results will be sent to her. BI-RAD Category 2: Benign. "Our facility is accredited by the [employer] Mammography Program." This patient's information has been entered into a reminder system for the patient to be notified wit h the results of her examination and a target date for the next mammogram. Electronically signed by: Nicole Liz MD (12/31/2020 2:09 PM) [id number]
== END ==
LOC: KCIC MAMMO 08:51
PROVIDERS: ATTEND Internal Medicine
DX: Z12.31 Encounter for screening mammogram for malignant neoplasm of breast (principal); M85.88 Other specified disorders of bone density and structure, other site
CPT/HCPCS: 77063; 77067; 77080